=== PATIENT | male | born 1950 | race Caucasian/White ===

== ENCOUNTER 2016-09-29 08:26 | Day surgery (SDC) | payer MEDICARE, OTHER ==
[~2016-09-29] VITALS: Ht 170.2 cm; Wt 73.3 kg
--- NOTE | ~2016-09-29 | OR ---
PATIENT'S NAME: CY NEFF [facility] AGE: 66 Y [address] ROOM: [place] [address] LOCATION: [facility] ADMIT DATE: 09/29/2016 OR/Procedure Report DISCHARGE DATE: FAMILY PHYSICIAN: Rajan Fernandez MD ATTENDING PHYSICIAN: Duran Kenyon V SURGEON: Duran Kenyon MD PRINT MACHINE OPERATOR: JAMAL Arizmendi. DATE OF PROCEDURE: 09/29/2016 PREOPERATIVE DIAGNOSIS: Recurrent basal cell carcinoma of the right lateral nose with intranasal extension. POSTOPERATIVE DIAGNOSIS: Recurrent basal cell carcinoma of the right lateral nose with intranasal extension. OPERATIONS/PROCEDURES: 1. Excision of 4 cm basal cell carcinoma full-thickness right lateral nose with intranasal extension/partial rhinectomy. 2. Midline forehead flap reconstruction. 3. Free mucosal intranasal flap from right buccal mucosa. ANESTHESIA: General endotracheal anesthesia. ESTIMATED BLOOD LOSS: Minimal. COMPLICATIONS: None. BRIEF HISTORY: The patient is a 66-year-old gentleman with history of basal cell carcinoma, right lateral nose, status post wide surgical excision. He had positive deep margins. The patient subsequently developed recurrent basal cell carcinoma with extension into the intranasal mucosa, right lateral nose. Was scheduled for wide surgical excision and midline forehead flap reconstruction. DESCRIPTION OF PROCEDURE: The patient was taken to the operating room, laid in supine position with general endotracheal anesthesia. The right lateral nose was approached. Approximately 3 x 3 cm circumferential skin incision performed using a #15 blade. Subcutaneous tissues divided using a #15 blade down to the bone of the right lateral nose. It was extended superiorly up along the nasal dorsum. An incision was then followed along the medial aspect of the nasal dorsum through the upper lateral cartilage. Nose was entered superiorly. Circumferential dissection was performed surrounding the intranasal component of the nasal cavity. Lateral nasal bone was taken down with Kerrison circumferentially. Specimen was removed, marked, and sent for frozen section pathology. Hemostasis was obtained using Bovie electrocautery. PATIENT'S NAME: CY NEFF [facility] AGE: 66 Y [address] ROOM: [place] [address] LOCATION: [facility] ADMIT DATE: 09/29/2016 OR/Procedure Report DISCHARGE DATE: FAMILY PHYSICIAN: Rajan Fernandez MD ATTENDING PHYSICIAN: Duran Kenyon V Frozen section pathology revealed positive inferior posterior margin. Additional approximately 1 cm inferior mucosal margin was then performed extending through the deep tissue of the skin extending into the right nasal alar crease. This was extended down to the piriform aperture. Additional approximately 0.5 cm bone was taken down with the guarded osteotome followed superiorly up to the anterior attachment of the middle turbinate. Lacrimal sac was not entered. The specimen was removed, marked, and sent for additional frozen section pathology. Frozen section pathology was clear. Attention was then turned to the oral cavity. The right buccal mucosa was infiltrated with 1% lidocaine with epinephrine solution. An incision was performed in the anterior buccal mucosa with a #15 blade. The mucosal flap was then elevated posteriorly and a large approximately 4 x 2.5 cm free mucosal graft was taken, placed on the back table. Intraoral incision was closed using a running interlocking 5-0 Vicryl suture. Hemostasis was adequate. Mucosal flap was then fashioned and sutured into place in the right nasal defect. Midline forehead flap was then developed off the supraorbital artery on the left. Flap was infiltrated with 1% lidocaine with epinephrine solution. Incision was performed. Flap was developed. It was then rotated into place across the nasal dorsum and to the right nasal defect. The flap was thinned. Subcutaneous tissues were approximated using the interrupted 5-0 Vicryl suture. Skin closure performed with a running interlocking 6-0 Ethilon from the midline of the forehead circumferentially around the nose. The patient procedure well. Intranasal exam was performed. A MeroGel dissolvable pack was then placed between the nasal septum and the mucosal graft covered by Bactroban ointment. The patient tolerated the procedure well. Bactroban ointment was applied to the skin incision. The patient was aroused, extubated, and discharged from the operating room to recovery room in satisfactory condition. DURAN KENYON MD TVC/modl /[id number] CC: MD Rajan Rosario MD d: [id number] t: 10/06/16720, OPERATIVE SUMMARY
[~2016-09-29 08:26] MED LIST: NAPROSYN500 MG PO; TYLENOL PM EX-1 EACH PO; ZANTAC (NON-FO150 MG PO
--- NOTE | 2016-09-29 16:51 | NUR ---
Significant Event: Received from pacu @ 9883. Will have 1st hourly vs due @ 1830. Has incicion down from forhead to R) nose, packing inside nose. Skin graft from inside R) cheek to R)nose. Nitrpaste to skin flap q 6 hr. Tylenol #3 and Morphine IV for pain control. Taking sips water. no void. Has small amt bloody drainage from nasal incision after coughing. O2 2L. Follow up:
--- NOTE | 2016-09-30 04:16 | NUR ---
Patient very drowsy at begining of shift, has not recieved any pain medication, is more alert now, treatments done to the incision on face, did encourage paitent to use IS still remains on 2L of , ambulated to bathroom with 2 assist walker and gaitbelt, denies need for pain medication, has rested well
--- NOTE | 2016-09-30 10:13 | NUR ---
Introduced self and CM role to patient. I asked patient how he was feeling and he stated he is doing okay. Patient is pleasant and states he lives with his son in [place]. His son works during the day, but is with him in the evening and overnight if he were to need anything. He states he is independent and doesn't have any concerns about going back to home once medically cleared to discharge. No other needs or concerns at this time. Wrote CM name on markerboard and told him to contact us if any concerns were to arise. CM production internship TH.
[2016-09-30] MEDS ORDERED: PERIDEX15 ML PO (10:51)
[2016-09-30] MEDS ORDERED: HYDROGEN PEROXID1 ML (10:53)
[2016-09-30] MEDS ORDERED: BACITRACIN OPH3.5 GM (10:54)
[2016-09-30] MEDS ORDERED: TYLENOL/COD#3**1 TAB PO (10:56)
--- NOTE | 2016-09-30 12:11 | NUR ---
pt given discharge instructions and voices understanding. medications and wound care reviewed with pt. medications sent home with pt that he was using here. daughter at pt's side and verbalizes understanding. encouraged pt not to smoke.
== END 2016-09-30 11:50 | disposition disaster alternative care site (69) ==
LOC: GSDC 08:26 → G3N 14:37 → GSDC 09-30 11:50
PROC: 0HB1XZZ Excision of Face Skin, External Approach (ICD-10-PCS; principal; 2016-09-29)
DX: C44.311 Basal cell carcinoma of skin of nose (principal); K21.9 Gastro-esophageal reflux disease without esophagitis
CPT/HCPCS: J0171; J2270; J7030; J7120